=== PATIENT | male | born 1955 | race Caucasian/White ===

== ENCOUNTER 2023-09-12 09:24 | Emergency (ER) | payer OTHER ==
[~2023-09-12] VITALS: Ht 182.9 cm; Wt 90.9 kg
[~2023-09-12 09:24] MED LIST: LISIPOW; VERAPAMIL
[2023-09-12 10:05] VITALS: O2SAT 98
[2023-09-12] MEDS ORDERED: IOHEXOL 350 MG/ML 100ML IJ ONE ×2 (10:11→10:14)
[2023-09-12] MEDS ORDERED: cloNIDine HCL 0.1 MG TAB PO ONE (10:45)
[2023-09-12 10:58] LABS: Alanine Aminotransferase 13 U/L (7-40); Albumin 4.4 g/dL (3.2-4.8); Alkaline Phosphatase 86 U/L (46-116); Anion Gap 8 (5-15); Aspartate Aminotransferase 21 U/L (13-40); Bilirubin, Total 1.8 mg/dL (0.2-1.0); Blood Urea Nitrogen 7 mg/dL (9-23); Calcium 9.2 mg/dL (8.7-10.4); Carbon Dioxide 23 mmol/L (20-30); Chloride 106 mmol/L (98-107); Glucose 137 mg/dL (74-106); Magnesium 2.1 mg/dL (1.6-2.6); Sodium 137 mmol/L (136-145)
[2023-09-12 10:59] LABS: Total Protein 7.1 g/dL (5.7-8.2)
[2023-09-12 11:54] LABS: Basophils # (auto) 0.1 10 ^3/uL (0-0.2); Basophils % (auto) 0.7 % (0.0-2.0); Eosinophils # (auto) 0.1 10 ^3/uL (0-0.8); Lymphocytes # (auto) 3.3 10 ^3/uL (0.4-5.4); Monocytes # (auto) 0.9 10 ^3/uL (0-1.3)
[2023-09-12 11:57] LABS: Eosinophils % (auto) 0.8 % (0.0-7.0); Hematocrit 55.7 % (41.0-53.0); Hemoglobin 18.9 g/dL (13.5-17.5); Lymphocytes % (auto) 29.5 % (10.0-50.0); Mean Corpuscular Hemoglobin 33.2 pg (28.0-32.0); Mean Corpuscular Volume 97.8 fL (80.0-100.0); Monocytes % (auto) 7.9 % (0.0-12.0); Neutrophils # (auto) 6.8 10 ^3/uL (1.6-8.6); Neutrophils % (auto) 61.1 % (37.0-80.0); Nucleated Red Blood Cells % 0.1 %; Red Cell Distribution Width 13.7 % (11.8-14.3); White Blood Cell 11.2 10^3/uL (4.4-10.8)
[2023-09-12 12:13] LABS: INR 1.05 (0.9-1.15); Partial Thromboplastin Time 35.7 SEC (24.5-34.5)
[2023-09-12 13:50] VITALS: BP 133/78; PULSE 60; RESP 21; TEMP 98; O2SAT 96
== END 2023-09-12 13:53 | disposition admitted as inpatient to this hospital (09) ==
LOC: ER 09:24
DX: G45.9 Transient cerebral ischemic attack, unspecified (principal); I67.2 Cerebral atherosclerosis; R53.1 Weakness; I10 Essential (primary) hypertension; R51.9 Headache, unspecified; F17.210 Nicotine dependence, cigarettes, uncomplicated; R42 Dizziness and giddiness
CPT/HCPCS: 36415; 70450; 70496; 71045; 80053; 83735; 83880; 84484; 85025; 85610; 85730; 93005; 99285; Q9967